=== PATIENT | male | born 1975 | race Hispanic/Latino ===

== ENCOUNTER 2023-09-29 09:55 | Emergency (ER) | payer SELFPAY ==
[2023-09-29] VITALS (12 sets, daily range): BP systolic 155–208; BP diastolic 64–93; PULSE 44–64; RESP 13–26; TEMP 36.5; O2SAT 98–100; BMI 32.6
[2023-09-29 10:25] LABS: Add Manual Diff / Slide Review NO; Basophils Absolute Auto 0 /uL (0-100); Basophils Percent Auto 0.2 % (0-2); Eosinophils Absolute Auto 0 /uL (0-450); Hematocrit 42.8 % (41-53); Hemoglobin 14.4 g/dL (13.5-17.5); Lymphocytes Absolute Auto 900 /uL (1100-4500); Lymphocytes Percent Auto 6.6 % (25-40); Mean Corpuscular HGB Conc 33.7 % (30-36); Mean Corpuscular Hemoglobin 30.1 PG (26-34); Mean Corpuscular Volume 89.1 fL (80-100); Monocytes Absolute Auto 800 /uL (0-900); Monocytes Percent Auto 5.5 % (3-14); Neutrophils Absolute Auto 12200 /uL (1500-7000); Neutrophils Percent Auto 87.7 % (50-75); Platelet Count 227 X10^3/uL (150-400); Red Blood Cell Count 4.81 X10^6/uL (4.5-5.9); Red Cell Distribution Width 13.4 % (11.6-14.8); White Blood Cell Count 13.9 X10^3/uL (4.5-11.0)
[2023-09-29 10:41] LABS: Alanine Aminotransferase 48 IU/L (<50); Albumin 4.8 g/dL (3.5-5.0); Albumin Globulin Ratio 1.2 (1.0-2.8); Alkaline Phosphatase 72 U/L (38-126); Aspartate Aminotransferase 36 IU/L (17-59); BUN Creatinine Ratio 16.4 (6-22); Bilirubin Total 0.7 mg/dL (0.2-1.3); Blood Urea Nitrogen 18 mg/dL (9-20); Calcium 9.4 mg/dL (8.4-10.2); Carbon Dioxide 30 mmol/L (22-32); Chloride 102 mmol/L (98-107); Estimated Glomerular Filt Rate > 60 mL/min (>60); Glucose 172 mg/dL (70-100); HEMOLYSIS < 15 (0-50); Lipase 43 U/L (23-300); Potassium 4.5 mmol/L (3.4-5.1); Sodium 139 mmol/L (137-145); Total Protein 8.8 g/dL (6.3-8.2)
--- NOTE | 2023-09-29 10:45 | ED.ABDPAIN ---
HPI - Abdominal Pain General Chief Complaint: Abdominal Pain Stated Complaint: sent by PCP/ High B/P, low pulse/ R/Flank pain Time Seen by Provider: 09/29/23 10:08 Source: patient and family Mode of arrival: Ambulatory History of Present Illness HPI narrative: Patient is a 39-year-old male without significant past medical history presenting today with right-sided flank pain. He reports he woke abruptly at 1:00 a.m. just thought he had some back pain however now it is radiating into his abdomen down to his groin. No real nausea or vomiting no fever or chills. He reports that about 15 years ago he had a kidney stone. He currently takes no medications. Related Data Previous Rx's Medication Instructions Recorded hydrocodone 5 mg-acetaminophen 325 1 tab PO Q6H PRN pain #10 tabs 09/29/23 mg tablet ondansetron 4 mg disintegrating 4 mg PO Q8H PRN nausea and 09/29/23 tablet vomiting #10 tabs Allergies Allergy/AdvReac Type Severity Reaction Status Date / Time No Known Drug Allergies Allergy Verified 09/29/23 10:11 Patient History Social History Smoking Status: Never smoker Smoking Status: Never smoker Exam Initial Vital Signs Initial Vital Signs: Vital Signs Temperature 97.7 F 09/29/23 10:07 Pulse Rate 64 09/29/23 10:07 Respiratory Rate 20 09/29/23 10:07 Blood Pressure 184/64 H 09/29/23 10:07 Pulse Oximetry 100 09/29/23 10:07 Oxygen Delivery Method Room Air 09/29/23 10:07 GENERAL: Alert 47 year and in no acute distress. HEENT: Head atraumatic,EOMI, pupils reactive, face symmetric, moist mucous membranes CARDIOVASCULAR: Regular rate and rhythm without murmurs, rubs or gallops. RESPIRATORY: Breath sounds equal bilaterally, no wheezes rales or rhonchi. ABDOMEN: Soft, nontender. Normoactive bowel sounds all 4 quadrants. No guarding or rebound. Negative Basilio : Mild right CVA tenderness EXTREMITIES: Normal range of motion, no clubbing or edema. Neurovascularly intact NEUROLOGICAL: Alert and oriented x4. SKIN: Warm, dry, no laceration, no petechiae, no rashes or lesions. Course Orders Ordered: ED Orders 09/29/23 10:08 EKG-12 Lead Stat 09/29/23 10:14 Complete Blood Count AUTO DIFF Stat Comprehensive Metabolic Panel Stat Lipase Stat 09/29/23 10:19 EKG-12 Lead Routine 09/29/23 10:50 CT kidney ureter bladder (KUB) Stat Discontinued Medications Ketorolac Tromethamine (Ketorolac 30 Mg/Ml Vial) 15 mg IV NOW ONE Stop: 09/29/23 10:51 Last Admin: 09/29/23 12:13 Dose: 15 mg Documented By: CLINT Morphine Sulfate (Morphine 2 Mg/Ml Inj) 2 mg IV NOW ONE Stop: 09/29/23 11:52 Last Admin: 09/29/23 12:15 Dose: 2 mg Documented By: CLINT Ondansetron HCl (Ondansetron 4 Mg Odt) 4 mg PO NOW PRN PRN Reason: Nausea And Vomiting Ondansetron HCl (Ondansetron 4 Mg/2 Ml Inj) 4 mg IV NOW PRN PRN Reason: Nausea And Vomiting Last Admin: 09/29/23 12:33 Dose: 4 mg Documented By: CLINT Vital Signs Vital signs: Vital Signs - 8 hr 09/29/23 10:07 09/29/23 10:09 09/29/23 10:10 Temperature 97.7 F Pulse Rate 64 Respiratory Rate 20 Blood Pressure 184/64 H 168/71 H Pulse Oximetry 100 100 Oxygen Delivery Method Room Air 09/29/23 10:10 09/29/23 10:30 09/29/23 10:31 Temperature Pulse Rate 54 L 51 L Respiratory Rate 22 Blood Pressure 155/69 H Pulse Oximetry 98 98 Oxygen Delivery Method 09/29/23 10:31 09/29/23 11:00 09/29/23 11:01 Temperature Pulse Rate 49 L 51 L Respiratory Rate 16 18 Blood Pressure 208/93 H Pulse Oximetry 99 100 Oxygen Delivery Method 09/29/23 11:01 09/29/23 11:20 09/29/23 11:20 Temperature Pulse Rate 53 L 54 L Respiratory Rate 26 H 13 Blood Pressure 155/73 H Pulse Oximetry 98 100 Oxygen Delivery Method 09/29/23 11:30 09/29/23 11:41 09/29/23 11:41 Temperature Pulse Rate 44 L 53 L Respiratory Rate 16 14 Blood Pressure 163/87 H Pulse Oximetry 99 100 Oxygen Delivery Method 09/29/23 12:00 09/29/23 12:01 09/29/23 12:01 Temperature Pulse Rate 46 L 52 L Respiratory Rate 17 18 Blood Pressure 183/93 H Pulse Oximetry 100 100 Oxygen Delivery Method MDM - Abdominal Pain Lab Data 09/29/23 10:14 09/29/23 10:14 Labs: Lab Results 09/29/23 Range/Units 10:14 WBC 13.9 H (4.5-11.0) X10^3/uL RBC 4.81 (4.5-5.9) X10^6/uL Hgb 14.4 (13.5-17.5) g/dL Hct 42.8 (41-53) % MCV 89.1 (80-100) fL MCH 30.1 (26-34) PG MCHC 33.7 (30-36) % RDW 13.4 (11.6-14.8) % Plt Count 227 (150-400) X10^3/uL Neut % (Auto) 87.7 H (50-75) % Lymph % (Auto) 6.6 L (25-40) % [place] % (Auto) 5.5 (3-14) % Eos % (Auto) 0.0 L (2-4) % Baso % (Auto) 0.2 (0-2) % Neut # (Auto) 43206 H (1982-8307) /uL Lymph # (Auto) 900 L (0577-6556) /uL [place] # (Auto) 800 (0-900) /uL Eos # (Auto) 0 (0-450) /uL Baso # (Auto) 0 (0-100) /uL Sodium 139 (137-145) mmol/L Potassium 4.5 (3.4-5.1) mmol/L Chloride 102 (98-107) mmol/L Carbon Dioxide 30 (22-32) mmol/L BUN 18 (9-20) mg/dL Creatinine 1.10 (0.66-1.25) mg/dL Estimated GFR > 60 (>60) mL/min BUN/Creatinine Ratio 16.4 (6-22) Glucose 172 H (70-100) mg/dL Calcium 9.4 (8.4-10.2) mg/dL Total Bilirubin 0.7 (0.2-1.3) mg/dL AST 36 (17-59) IU/L ALT 48 (<50) IU/L Alkaline Phosphatase 72 (38-126) U/L Total Protein 8.8 H (6.3-8.2) g/dL Albumin 4.8 (3.5-5.0) g/dL Globulin 4.0 (1.7-4.1) g/dL Albumin/Globulin Ratio 1.2 (1.0-2.8) Lipase 43 (23-300) U/L Point of care testing: Urine Dip Bedside Urine Glucose Negative Bedside Urine Bilirubin - Negative Bedside Urine Ketone - Negative Urine Specific [place] 1.015 Bedside Urine Occult Blood - Negative Bedside Urine pH 8.0 Bedside Urine Protein - Negative Bedside Urine Urobilinogen - Negative Bedside Urine Nitrite - Negative Bedside Urine Leukocytes - Negative Esterase Imaging Data CT scan - abdomen/pelvis: Radiologist's Impression: PROCEDURE: CT KIDNEY URETER BLADDER (KUB) INDICATIONS: right flank pain TECHNIQUE: Axial sections were acquired from the lung bases to the pubic symphysis. Coronal and sagittal reformats were performed. For radiation dose reduction, the following was used: automated exposure control, adjustment of mA and/or kV according to patient size. COMPARISON: None. FINDINGS: Image quality: Diagnostic. Lower Chest: No significant findings. URINARY: Right Kidney: Mild right hydronephrosis. No stones within the right kidney. Significant perinephric stranding. Right Ureter: Mild diffuse hydroureter. No obstructing stone is seen. Left Kidney: No stones or hydronephrosis. Left Ureter: No hydroureter. Bladder: There is a stone within the urinary bladder near the right ureterovesicular junction measuring 3 mm. ABDOMEN: Liver: No contour-deforming solid mass. Mildly decreased attenuation, consistent with hepatic steatosis. Gallbladder: No radiopaque gallstones or wall thickening. Biliary ducts: No biliary dilation. Pancreas: No ductal dilation. Spleen: Size is within normal limits. Adrenal Glands: No adrenal nodules. Stomach and Bowel: Normal colonic caliber, without significant wall thickening. Peritoneum: No abnormal intraperitoneal fluid. No free air. Ventral Wall: No hernia. Abdominal Nodes: No enlarged retroperitoneal or mesenteric lymph nodes. Vessels: Aorta and inferior vena cava are normal in size. PELVIS: Pelvic Organs: Unremarkable. Pelvic Nodes: Unremarkable. Miscellaneous: Small bilateral fat containing inguinal hernias are seen. Bones: Mild degenerative changes of the spine. IMPRESSION: 1. Mild right hydroureteronephrosis with significant right perinephric stranding. There is a 3 mm stone within the urinary bladder near the right ureterovesicular junction, likely representing a recently passed stone with residual hydroureteronephrosis. No obstructing stones are seen within the right kidney or ureter. Given degree of perinephric stranding, consider urinalysis to exclude infection. 2. No left renal stones. 3. Mild hepatic steatosis. Dictated by: Julian Street M.D. on 09/29/2023 at 11:23 MDM Narrative Medical decision making narrative: Patient well-appearing 47-year-old male who presents today with sudden onset right-sided flank pain. States that he previously had a kidney stone a number of years ago. Pain seems to be a bit better now no longer nauseous. Blood work has been reviewed he is leukocytosis of 13.9 no GRICEL urinalysis is negative for infection Imaging reviewed CT confirms 3 mm stone now in the bladder near UVJ junction. At this time supportive care only no need for antibiotics pain control as needed. Discharge Plan Departure Patient Disposition: Home Clinical Impression: Kidney stones Instructions: DI for Kidney Stones Activity Restrictions/Additional Instructions: *You have been diagnosed with kidney stone right side *What to do: You will likely pass the kidney stone today *Continue to take medications as directed Ibuprofen 600 mg every 6 hours for xzsa-wi-hntsnawp pain Zofran 4 mg every 8 hours for nausea or vomiting [place] 1 tablet every 6 hours if needed for severe pain *Follow up with your primary care provider in 2-3 days or call [phone] *Return to ER if you should have increasing pain nausea vomiting [or] any new, worsening or concerning symptoms CONTROLLED SUBSTANCE DISCHARGE (Narcotoic/benzodiazepine/Flexeril/Phenergan) 1. You have been prescribed narcotic medications, it does have acetaminophen/Tylenol/paracetamol in it, DO NOT TAKE MORE THAN 4,00mg in 24 hours of Tylenol. TRAMADOL DOES NOT CONTAIN TYLENOL 2. Please understand that we cannot provide further refills of narcotics, benzodiazepines or controlled substances through the ED and her pain management will need to be through your provider. 3. While on these medications you cannot drive or operate heavy machinery. 4. You cannot sign legal documents or perform any duties such as this. 5. As long as you're taking opiate pain medications he should also be taking a stool softener such as Colace, Dulcolax, MiraLAX or prune juice, to help avoid constipation. Prescriptions: New hydrocodone-acetaminophen 5-325 mg tablet 1 tab PO Q6H PRN (Reason: pain) Qty: 10 0RF ondansetron 4 mg tablet,disintegrating 4 mg PO Q8H PRN (Reason: nausea and vomiting) Qty: 10 0RF Referrals: Katlin Wynne DO [Primary Care Provider] - Stand Alone Forms: Patient Portal/API
--- NOTE | 2023-09-29 10:50 | DI.CT.S_ITS ---
PROCEDURE: CT KIDNEY URETER BLADDER (KUB) INDICATIONS: right flank pain TECHNIQUE: Axial sections were acquired from the lung bases to the pubic symphysis. Coronal and sagittal reformats were performed. For radiation dose reduction, the following was used: automated exposure control, adjustment of mA and/or kV according to patient size. COMPARISON: None. FINDINGS: Image quality: Diagnostic. Lower Chest: No significant findings. URINARY: Right Kidney: Mild right hydronephrosis. No stones within the right kidney. Significant perinephric stranding. Right Ureter: Mild diffuse hydroureter. No obstructing stone is seen. Left Kidney: No stones or hydronephrosis. Left Ureter: No hydroureter. Bladder: There is a stone within the urinary bladder near the right ureterovesicular junction measuring 3 mm. ABDOMEN: Liver: No contour-deforming solid mass. Mildly decreased attenuation, consistent with hepatic steatosis. Gallbladder: No radiopaque gallstones or wall thickening. Biliary ducts: No biliary dilation. Pancreas: No ductal dilation. Spleen: Size is within normal limits. Adrenal Glands: No adrenal nodules. Stomach and Bowel: Normal colonic caliber, without significant wall thickening. Peritoneum: No abnormal intraperitoneal fluid. No free air. Ventral Wall: No hernia. Abdominal Nodes: No enlarged retroperitoneal or mesenteric lymph nodes. Vessels: Aorta and inferior vena cava are normal in size. PELVIS: Pelvic Organs: Unremarkable. Pelvic Nodes: Unremarkable. Miscellaneous: Small bilateral fat containing inguinal hernias are seen. Bones: Mild degenerative changes of the spine. IMPRESSION: 1. Mild right hydroureteronephrosis with significant right perinephric stranding. There is a 3 mm stone within the urinary bladder near the right ureterovesicular junction, likely representing a recently passed stone with residual hydroureteronephrosis. No obstructing stones are seen within the right kidney or ureter. Given degree of perinephric stranding, consider urinalysis to exclude infection. 2. No left renal stones. 3. Mild hepatic steatosis. Dictated by: Julian Street M.D. on 09/29/2023 at 11:[address] Appro[address] by: Julian [address] M.D. on 09/29/2023 at 11:28
[2023-09-29] MEDS: KETOROLAC 30 MG/ML VIAL 15 MG IV (12:13)
[2023-09-29] MEDS: MORPHINE 2 MG/ML INJ IV (12:15)
[2023-09-29] MEDS: ONDANSETRON 4 MG/2 ML INJ IV (12:33)
== END 2023-09-29 12:45 | disposition home or self-care (01) ==
PROVIDERS: Emergency Provider Emergency Medicine; Family Provider Family Medicine; PCP Family Medicine
DX: N20.0 Calculus of kidney (principal); Z87.442 Personal history of urinary calculi; R10.9 Unspecified abdominal pain
CPT/HCPCS: 36415; 74176; 80053; 81003; 83690; 85025; 93005; 93010; 96374; 96375; 99284; J1885; J2270; J2405